=== PATIENT | female | born 1935 | race Caucasian/White ===

== ENCOUNTER 2017-12-05 07:32 | Inpatient (IN) | payer MEDICARE, BC ==
[~2017-12-05] VITALS: Ht 154.9 cm; Wt 52.2 kg
[~2017-12-05 07:32] MED LIST: ACET325; ACET325 PO; ADVIL100 MG PO; ALBU90OI INH; ALPR.25 PO; ALPR.5; ALPR1 PO; AMIT25 PO; AMLO5 PO; ATOR10; Aspir 8181 MG PO; Bactrim Ds Tab1 EACH PO; CALCA500CH PO; CHOL10002 PO; CIME400 PO; CIPR250 PO; DICY20 PO; ESOM20; ESOM20 PO; ESTR2; ESTR2 PO; FLUSAL2505 IH; FLUSAL2505 INH; FLUT1DIS8 INH; GABA300; LISINOPRIL; LOPE2EL PO; METPRE4DP PO; MIRT30 PO; NIFE60ER; Norco 5-325 Ta1 EACH PO; OMEP40CA12 PO; OMEPRAZOLE MAGN20 MG PO; OXYACE5T; OXYACE5T PO; POLY500 PO; POTA10T; POTA20LUD PO; POTCHL20ER PO; PROACE100; SIMV10 PO; TIOT18 INH; TRAZ100; TRAZ100 PO; VALA500 PO; [UNRECOGNIZED DRUG - OTHER] TOP
[2017-12-05 08:16] LABS: BASOPHILS ABSOLUTE AUTO 0.02 K/mm3 (0.00-0.23); BASOPHILS PERCENT AUTO 0 % (0-2); EOSINOPHILS ABSOLUTE AUTO 0.32 K/mm3 (0.00-0.68); EOSINOPHILS PERCENT AUTO 4 % (0-6); Hematocrit 42.9 % (33.0-51.0); Hemoglobin 14.1 g/dL (11.5-16.0); IMMATURE GRAN ABSOLUTE AUTO 0.03 K/mm3 (0.00-0.10); IMMATURE GRAN PERCENT AUTO 0 % (0-1); LYMPHOCYTES ABSOLUTE AUTO 0.85 K/mm3 (0.84-5.20); LYMPHOCYTES PERCENT AUTO 12 % (21-46); MONOCYTES ABSOLUTE AUTO 0.72 K/mm3 (0.16-1.47); MONOCYTES PERCENT AUTO 10 % (4-13); Mean Corpuscular HGB 31.5 pg (26.0-34.0); Mean Corpuscular HGB Conc 32.9 g/dL (31.5-36.5); Mean Corpuscular Volume 96 fL (80-100); NEUTROPHILS ABSOLUTE AUTO 5.36 K/mm3 (1.96-9.15); NEUTROPHILS PERCENT AUTO 73 % (41-73); RDW Coefficient Variation 12.9 % (11.7-14.2); RDW Standard Deviation 45.1 fL (35.1-46.3); Red Blood Cell Count 4.48 M/mm3 (3.80-5.20)
[2017-12-05 08:25] LABS: Mean Platelet Volume 12.1 fL (9.1-12.4); Platelet Count 177 K/mm3 (150-400)
[2017-12-05 08:35] LABS: Alanine Aminotransfer (ALT/SGP 14 U/L (12-78); Albumin, Blood 3.3 g/dL (3.4-5.0); Albumin/Globulin Ratio 0.9 (0.8-1.8); Alk Phos 76 U/L (50-136); Anion Gap 5 mmol/L (6-16); Aspartate Aminotrans (AST/SGOT 13 U/L (12-37); Bilirubin, Total 0.4 mg/dL (0.1-1.0); Blood Urea Nitrogen 8 mg/dL (8-24); Bun/Creatinine Ratio 18.7 (12.0-20.0); CO2, Blood 35 mmol/L (21-32); Calcium, Blood 9.4 mg/dL (8.5-10.1); Chloride, Blood 100 mmol/L (98-108); Creatinine, Blood 0.43 mg/dL (0.40-1.00); Globulin, Blood 3.7 g/dL (2.2-4.0); Glomerular Filtration Rate >60 (60-); Glucose, Blood 106 mg/dL (70-99); Potassium, Blood 3.5 mmol/L (3.5-5.5); Sodium, Blood 140 mmol/L (136-145)
[2017-12-05] MEDS ORDERED: SIMV10 PO (10:42)
[2017-12-05] MEDS ORDERED: Micro-K10 MEQ PO (10:43)
[2017-12-05] MEDS ORDERED: Tylophen500 MG PO (10:47)
[2017-12-05] MEDS ORDERED: NITR100 PO (10:51)
[2017-12-05] MEDS ORDERED: ONDA4ODT SL (10:52)
[2017-12-05] MEDS ORDERED: FURO40 PO (10:53)
[2017-12-06 05:03] LABS: BASOPHILS ABSOLUTE AUTO 0.01 K/mm3 (0.00-0.23); BASOPHILS PERCENT AUTO 0 % (0-2); EOSINOPHILS ABSOLUTE AUTO 0.02 K/mm3 (0.00-0.68); EOSINOPHILS PERCENT AUTO 0 % (0-6); Hematocrit 36.6 % (33.0-51.0); Hemoglobin 12.3 g/dL (11.5-16.0); IMMATURE GRAN ABSOLUTE AUTO 0.01 K/mm3 (0.00-0.10); IMMATURE GRAN PERCENT AUTO 0 % (0-1); LYMPHOCYTES ABSOLUTE AUTO 0.49 K/mm3 (0.84-5.20); LYMPHOCYTES PERCENT AUTO 8 % (21-46); MONOCYTES ABSOLUTE AUTO 0.21 K/mm3 (0.16-1.47); MONOCYTES PERCENT AUTO 3 % (4-13); Mean Corpuscular HGB 31.4 pg (26.0-34.0); Mean Corpuscular HGB Conc 33.6 g/dL (31.5-36.5); NEUTROPHILS ABSOLUTE AUTO 5.77 K/mm3 (1.96-9.15); NEUTROPHILS PERCENT AUTO 89 % (41-73); RDW Coefficient Variation 12.7 % (11.7-14.2); RDW Standard Deviation 43.8 fL (35.1-46.3); Red Blood Cell Count 3.92 M/mm3 (3.80-5.20); White Blood Cell Count 6.51 K/mm3 (4.00-11.30)
[2017-12-06 05:21] LABS: Anion Gap 8 mmol/L (6-16); Blood Urea Nitrogen 13 mg/dL (8-24); Bun/Creatinine Ratio 30.7 (12.0-20.0); CO2, Blood 32 mmol/L (21-32); Calcium, Blood 9.1 mg/dL (8.5-10.1); Chloride, Blood 98 mmol/L (98-108); Creatinine, Blood 0.42 mg/dL (0.40-1.00); Glomerular Filtration Rate >60 (60-); Glucose, Blood 117 mg/dL (70-99); Potassium, Blood 3.5 mmol/L (3.5-5.5); Sodium, Blood 138 mmol/L (136-145)
[2017-12-06 05:25] LABS: Mean Corpuscular Volume 93 fL (80-100); Mean Platelet Volume 12.3 fL (9.1-12.4)
[2017-12-06 05:26] LABS: Platelet Count 103 K/mm3 (150-400)
[2017-12-07] MEDS ORDERED: PRED20 PO (09:06)
== END 2017-12-07 11:31 | disposition home or self-care (01) | DRG 190 ==
LOC: ER 07:32 → MEDS 09:38 → ENPENDDIS 12-07 09:00 → MEDS 12-07 11:31
PROVIDERS: Emergency Medicine; Internal Medicine
DX: J44.1 Chronic obstructive pulmonary disease with (acute) exacerbation (principal); J96.01 Acute respiratory failure with hypoxia; R64 Cachexia; I10 Essential (primary) hypertension; K20.9 Esophagitis, unspecified; E78.5 Hyperlipidemia, unspecified; K52.9 Noninfective gastroenteritis and colitis, unspecified; F41.9 Anxiety disorder, unspecified
CPT/HCPCS: 36415; 71046; 80048; 80053; 83605; 84145; 85025; 87040; 93005; 93010; 94640; 94760; 94761; 96374; 99285; J1650; J2920; J2930

== ENCOUNTER 2018-09-15 14:20 | Inpatient (IN) | payer MEDICARE, BC ==
[~2018-09-15] VITALS: Ht 152.4 cm; Wt 40.8 kg
[~2018-09-15 14:20] MED LIST changes: +ANTACID MULTI-1 EACH PO; +Adult Glycerin1 EACH PR; +Amlodipine Besyl5 MG PO; +DOCU100 PO; +FLUT1DIS5 INH; +FURO40 PO; +LACT10SY PO; +MIRALAX17 GM PO; +Micro-K10 MEQ PO; +NITR100 PO; +ONDA4ODT SL; +Omeprazole20 M1 PO; +PRED20 PO; +Sprintec1 EACH; +Tylophen500 MG PO; +ZENPEP DR 20,01 EACH PO
[2018-09-15 14:40] LABS: Calcium, Ionized (POC) 1.24 mmol/L (1.10-1.46); Chloride (POC) 99 mmol/L (98-108); Creatinine (POC) 0.9 mg/dL (0.6-1.0); Glucose (ISTAT POC) 159 mg/dL (70-99); Hemoglobin (POC) 16.3 g/dL (12.0-16.0); Potassium (POC) 3.4 mmol/L (3.5-5.5); Sodium (POC) 139 mmol/L (135-148); Total CO2 (POC) 28 mmol/L (21-32)
== END 2018-09-16 00:43 | DRG 951 ==
LOC: ER 14:20 → ERHOLD 16:54
PROVIDERS: Emergency Medicine; ADMIT Internal Medicine
DX: Z51.5 Encounter for palliative care (principal); I61.3 Nontraumatic intracerebral hemorrhage in brain stem; R64 Cachexia; Z68.1 Body mass index [BMI] 19.9 or less, adult; G93.40 Encephalopathy, unspecified; Z66 Do not resuscitate; E78.5 Hyperlipidemia, unspecified; J43.9 Emphysema, unspecified; I10 Essential (primary) hypertension; F41.9 Anxiety disorder, unspecified; F03.90 Unspecified dementia, unspecified severity, without behavioral disturbance, psychotic disturbance, mood disturbance, and anxiety
CPT/HCPCS: 70450; 80047; 85014; 99285-25